=== PATIENT | male | born 1945 | race Caucasian/White ===

== ENCOUNTER 2022-09-30 20:09 | Inpatient (IN) ==
[2022-09-30] MEDS ORDERED: ONDANSETRON 4 MG/2 ML VIAL IV ONE (20:24)
[2022-09-30] MEDS ORDERED: ACETAMINOPHEN 325 MG TABLET PO PRN (20:39)
[2022-09-30] MEDS ORDERED: ONDANSETRON 4 MG/2 ML VIAL IV PRN ×2 (20:39)
[2022-09-30] MEDS ORDERED: MORPHINE 2 MG/1 ML SYRINGE IV PRN (20:39)
[2022-09-30] MEDS ORDERED: BISACODYL 5 MG TABLET PO PRN (20:39)
[2022-09-30] MEDS ORDERED: HYDROmorphone 1 MG/1 ML SYRINGE IV PRN (20:39)
[2022-09-30] MEDS: LACTATED RINGERS 1,000 ML IV SCH (21:02)
[2022-10-01] MEDS: PIPERACILLIN/TAZOBACTAM 3,375 MG in SODIUM CHLORIDE 0.9% 100 ML IV SCH ×3 (02:09→21:00)
[2022-10-01 05:12] LABS: Basophils % 0.1 % (0.0-0.8); Hematocrit 42.3 VOL% (42.0-52.0); Immature Granulocytes % 1.3 %; Immature Granulocytes Absolute 0.25 #; Lymphocytes # 1.5 10*3/uL (1.4-4.0); Lymphocytes % 7.9 % (21.2-54.2); Mean Corpuscular HGB Conc 33.1 GM/DL (32-36); Mean Corpuscular Volume 90.4 FL (87-102); Mean Platelet Volume 9.8 FL (9.6-12.0); Monocytes % 10.4 % (1.7-12.7); Neutrophils % 80.3 % (38.7-73.9); Platelet Count 163 T/CUMM (130-400); Red Blood Count 4.68 MC/CUMM (3.8-5.5); Red Cell Distribution Width 13.7 % (9.3-17.3); White Blood Count 19.2 T/CUMM (4-12)
[2022-10-01 05:27] LABS: Albumin 2.9 G/DL (3.4-5.0); Bilirubin,Total 1.7 MG/DL (0.20-1.00); Calcium 10.4 MG/DL (8.5-10.1); Osmolality,Calculated 277.7 MOS/KG (273-304); Total Protein 6.6 G/DL (6.4-8.2)
[2022-10-01 08:33] LABS: Basophils % 0.1 % (0.0-0.8); Hematocrit 41.4 VOL% (42.0-52.0); Hemoglobin 13.5 GM/DL (14.0-18.0); Immature Granulocytes % 1.1 %; Lymphocytes # 1.3 10*3/uL (1.4-4.0); Lymphocytes % 7.1 % (21.2-54.2); Mean Corpuscular HGB Conc 32.6 GM/DL (32-36); Mean Corpuscular Volume 89.2 FL (87-102); Mean Platelet Volume 9.6 FL (9.6-12.0); Monocytes # 1.8 10*3/uL (0.11-0.8); Monocytes % 9.8 % (1.7-12.7); Neutrophils % 81.9 % (38.7-73.9); Platelet Count 164 T/CUMM (130-400); Red Blood Count 4.64 MC/CUMM (3.8-5.5); Red Cell Distribution Width 13.7 % (9.3-17.3); White Blood Count 17.9 T/CUMM (4-12)
[2022-10-01] MEDS: MORPHINE 2 MG/1 ML SYRINGE IV PRN ×3 (08:36→20:56)
[2022-10-01] MEDS: LACTATED RINGERS 1,000 ML IV SCH ×2 (08:36→17:24)
[2022-10-01] MEDS: PANTOPRAZOLE 40 MG VIAL IV SCH (08:36)
[2022-10-01 09:14] LABS: Albumin 2.7 G/DL (3.4-5.0); Bilirubin,Direct 1.14 MG/DL (0.0-0.20); Bilirubin,Indirect 0.9 MG/DL (0.0-1.0); Calcium 9.5 MG/DL (8.5-10.1); Osmolality,Calculated 282.4 MOS/KG (273-304); Total Protein 5.8 G/DL (6.4-8.2)
[2022-10-01] MEDS ORDERED: INDOCYANINE GREEN 25 MG VIAL IV ONE (09:46)
[2022-10-01] MEDS ORDERED: ONDANSETRON 4 MG/2 ML VIAL ONE (10:05)
[2022-10-01] MEDS ORDERED: ROCURONIUM 50 MG/5 ML VIAL IV ONE (10:05)
[2022-10-01] MEDS ORDERED: DEXAMETHASONE 4 MG/1 ML VIAL ONE (10:05)
[2022-10-01] MEDS ORDERED: propofoL 200 MG/20 ML VIAL IV ONE (10:05)
[2022-10-01] MEDS ORDERED: PHENYLEPHRINE 1 MG/10 ML SYRINGE IV ONE (10:05)
[2022-10-01] MEDS ORDERED: fentaNYL 100 MCG/2 ML VIAL ONE (10:05)
[2022-10-01] MEDS ORDERED: LIDOCAINE 2% 5 ML VIAL ONE (10:05)
[2022-10-01] MEDS ORDERED: SUCCINYLCHOLINE 200 MG/10 ML VIAL ONE (10:05)
[2022-10-01] MEDS ORDERED: BUPIVACAINE 0.5% 50 ML VIAL ONE (10:15)
[2022-10-01] MEDS ORDERED: TISSUE ADHESIVE 1 EACH APPLICATOR TOP ONE (10:15)
[2022-10-01] MEDS ORDERED: LIDOCAINE 1%/EPI INJ 20 ML VIAL ONE (10:15)
[2022-10-01] MEDS ORDERED: ACETAMINOPHEN INJ 1,000 MG/100 ML VIAL IV ONE (11:02)
[2022-10-01] MEDS ORDERED: METOPROLOL TARTRATE 5 MG/5 ML VIAL IV ONE (11:06)
[2022-10-01] MEDS ORDERED: LACTATED RINGERS 1,000 ML IV ONE (11:41)
[2022-10-01] MEDS ORDERED: GLYCOPYRROLATE 0.4 MG/2 ML VIAL ONE (12:17)
[2022-10-01] MEDS ORDERED: NEOSTIGMINE 10 MG/10 ML VIAL ONE (12:17)
[2022-10-01] MEDS ORDERED: ALPRAZolam 0.5 MG TABLET PO PRN (12:32)
[2022-10-01] MEDS ORDERED: EVOLOCUMAB 140 MG/ML SUBCUT SCH (12:32)
[2022-10-01] MEDS ORDERED: NF- (Turmeric Root Extract 500 mg Capsule) PO SCH (21:00)
[2022-10-02] MEDS: MORPHINE 2 MG/1 ML SYRINGE IV PRN (02:55)
[2022-10-02] MEDS: PIPERACILLIN/TAZOBACTAM 3,375 MG in SODIUM CHLORIDE 0.9% 100 ML IV SCH (06:00)
[2022-10-02 06:11] LABS: Basophils % 0.1 % (0.0-0.8); Hematocrit 36.5 VOL% (42.0-52.0); Hemoglobin 11.9 GM/DL (14.0-18.0); Immature Granulocytes % 0.7 %; Immature Granulocytes Absolute 0.09 #; Lymphocytes # 1.2 10*3/uL (1.4-4.0); Mean Corpuscular HGB Conc 32.6 GM/DL (32-36); Mean Corpuscular Volume 91.5 FL (87-102); Mean Platelet Volume 9.7 FL (9.6-12.0); Monocytes # 1.1 10*3/uL (0.11-0.8); Monocytes % 7.9 % (1.7-12.7); Neutrophils % 82.3 % (38.7-73.9); Platelet Count 164 T/CUMM (130-400); Red Blood Count 3.99 MC/CUMM (3.8-5.5); Red Cell Distribution Width 13.6 % (9.3-17.3); White Blood Count 13.7 T/CUMM (4-12)
[2022-10-02 06:38] LABS: Albumin 2.1 G/DL (3.4-5.0); Bilirubin,Direct 0.52 MG/DL (0.0-0.20); Bilirubin,Indirect 0.6 MG/DL (0.0-1.0); Bilirubin,Total 1.1 MG/DL (0.20-1.00); Osmolality,Calculated 280.5 MOS/KG (273-304); Total Protein 5.8 G/DL (6.4-8.2)
[2022-10-02] MEDS: LACTATED RINGERS 1,000 ML IV SCH ×4 (08:11→20:01)
[2022-10-02] MEDS: COENZYME Q10 100 MG CAPSULE PO SCH (08:55)
[2022-10-02] MEDS: ZINC GLUCONATE 50 MG TABLET PO SCH (08:56)
[2022-10-02] MEDS: PANTOPRAZOLE 40 MG VIAL IV SCH (08:56)
[2022-10-02] MEDS: ASPIRIN EC 81 MG TABLET PO SCH (08:57)
[2022-10-02] MEDS: POLYETHYLENE GLYCOL POWDER 17 GM PACK PO SCH (09:00)
[2022-10-03 07:01] VITALS: BP 157/75
[2022-10-03] MEDS: LACTATED RINGERS 1,000 ML IV SCH (08:00)
[2022-10-03] MEDS: PANTOPRAZOLE 40 MG VIAL IV SCH (08:46)
[2022-10-03] MEDS: ZINC GLUCONATE 50 MG TABLET PO SCH (08:46)
[2022-10-03] MEDS: COENZYME Q10 100 MG CAPSULE PO SCH (08:46)
[2022-10-03] MEDS: POLYETHYLENE GLYCOL POWDER 17 GM PACK PO SCH (08:46)
[2022-10-03] MEDS: ASPIRIN EC 81 MG TABLET PO SCH (08:46)
== END 2022-10-03 10:00 | disposition home or self-care (01) | DRG 419 ==
LOC: N.ED 20:09 → N.EDINP 20:09 → N.3E 22:57
PROVIDERS: ADMIT Surgery; ATTEND Surgery